=== PATIENT | male | born 1960 | race Caucasian/White ===

== ENCOUNTER 2018-10-30 21:01 | Emergency (ER) | payer BC ==
[~2018-10-30] VITALS: Ht 177.8 cm; Wt 87.1 kg
--- NOTE | 2018-10-30 21:44 | RAD ---
EXAM: CT HEAD WITHOUT CONTRAST. HISTORY: Head injury, altered mental status. TECHNIQUE: Computed tomography of the head was performed without intravenous contrast. COMPARISON: None. FINDINGS: There is no intracranial hemorrhage. Hypoattenuation within the periventricular white matter indicates mild chronic microangiopathic change. Prominence of the lateral ventricles and hemispheric sulci indicates mild atrophy. The visualized paranasal sinuses appear clear. There are changes of bilateral cataract surgery. The temporal bones are unremarkable. The calvarium reveals no suspicious lesions. IMPRESSION: 1. No acute intracranial findings. 2. 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 *One or more of the following individualized dose reduction techniques were utilized for this examination: 1. Automated exposure control. 2. Adjustment of the mA and/or kV according to patient size. 3. Use of iterative reconstruction technique. Electronically signed by: Cynthia Key MD (10/30/2018 9:41 PM) [facility]
[2018-10-30 22:54] VITALS: BP 124/74
--- NOTE | 2018-10-30 22:54 | PHYS DOC ---
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 Patient did experience a 1-2 minute loss of consciousness. Does not recall the episode. He denies headache, blurred vision, facial pain, neck pain. Denies nausea, vomiting, dizziness, fatigue, effusion, anterograde memory loss. Denies any other pain or injury complaint. States he drank 3 alcoholic beverages earlier this evening. He is not currently on anticoagulation therapy. Additional history per patient's family members.[] Review of Systems Review of Systems ROS as per HPI All other systems were reviewed and found to be within normal limits, except as documented in this note. Allergies Allergies Allergies Coded Allergies Type Severity Reaction Last Updated Verified codeine Allergy Intermediate 10/30/18 Yes Physical Exam Physical Exam Constitutional: Well developed, well nourished, white, cooperative, interactive.. [] HENT: Normocephalic, atraumatic, bilateral external ears normal, oropharynx moist, no oral exudates, nose, abrasion on nose, no deformity or epistaxis. [] Eyes: PERRL, EOMI, conjunctiva, minimally injected.. [] Neck: Normal range of motion, no midline tenderness. [] Lungs & Thorax: Bilateral breath sounds clear to auscultation [] Abdomen: Bowel sounds normal, soft, no tenderness. [] Skin: Warm, dry, no erythema, no rash. [] Neurologic: Alert and oriented X 3, cranial nerves II through XII grossly intact , normal motor function, normal sensory function, no focal deficits noted. [] Psychologic: Affect normal, judgement normal, mood normal. [] Current Patient Data Vital Signs Vital Signs Date Time Temp Pulse Resp B/P (MAP) Pulse Ox O2 Delivery O2 Flow Rate FiO2 10/30/18 22:35 81 16 97 10/30/18 21:01 97.7 167/86 (113) Room Air 97.7 EKG EKG [EKG: Reviewed, no arrhythmias] Radiology/Procedures Radiology/Procedures CT head: No acute findings.] Course & Med Decision Making Course & Med Decision Making Pertinent Labs and Imaging studies reviewed. (See chart for details) [No acute findings on CT or neurodeficits. A&Ox4. Typical CLOSED head injury instructions given ] John Disclaimer John Disclaimer This electronic medical record was generated, in whole or in part, using a voice recognition dictation system. Departure Departure Impression: Primary Impression: Closed head injury Additional Impressions: Concussion Facial contusion Condition: GOOD Referrals: UNKNOWN PCP NAME (PCP) Patient Instructions: Concussion and Brain Injury, [id number] Additional Instructions: Please go home and rest. Take Tylenol or ibuprofen for pain or headache symptoms occur. Avoid lights and other stimulating vitamins. Follow-up with PCP in 2-3 days for reevaluation as needed. Return to the ED if new or worsening symptoms. Problem Qualifiers KRISTI SANTILLAN DO Oct 30, 2018 22:54
--- NOTE | 2018-10-31 07:56 | EKG ---
[facility] [address] [place] [address] Test Date: 2018-10-30 Test Time: 21:18:48 Pat Name: JUAN WORTHY Department: Room: Gender: M Prototype Special Build: : 1960 Requested By: KRISTI SANTILLAN Order Number: [id number] Reading MD: Rigoberto Brice Measurements Intervals [place] Rate: 77 P: 60 HI: 156 QRS: 49 QRSD: 94 T: 56 QT: 368 QTc: 418 Interpretive Statements SINUS RHYTHM Electronically Signed On 11-07-2018 12:56:09 CDT by Rigoberto Brice
== END 2018-10-30 23:09 | disposition home or self-care (01) ==
LOC: ER 21:01
DX: S06.0X1A Concussion with loss of consciousness of 30 minutes or less, initial encounter (principal); S00.83XA Contusion of other part of head, initial encounter; Z88.5 Allergy status to narcotic agent; W21.02XA Struck by soccer ball, initial encounter; Y93.66 Activity, soccer; Y92.89 Other specified places as the place of occurrence of the external cause; Y99.8 Other external cause status
CPT/HCPCS: 70450; 93005; 99284-25